=== PATIENT | female | born 1970 | race Caucasian/White ===

== ENCOUNTER 2023-06-28 12:15 | Emergency (ER) | payer SELFPAY ==
[2023-06-28 12:20] VITALS: BP 133/90
--- NOTE | 2023-06-28 12:32 | ED.GENMED ---
History of Present Illness
<Devika Owens [employer] LEAD - Last Filed: 06/28/23 17:33>
General
Chief Complaint: Oral/Mouth Problem
Source: patient
Exam Limitations: none
Time Seen by Provider: 06/28/23 12:31
Nursing documentation reviewed up to this point in time: agreed with
Travel History
Have you had any contact with someone who has COVID-19?: No
Do you have any symptoms of coronavirus? Fever > 100 degrees, chills, cough, shortness of breath, sore throat, loss of taste or smell, muscle aches, or headache?: No
History of Present Illness
History of Present Illness:
53-year-old female is here with hx TMJ diagnosed 45 yrs ago, last flare was 20 yrs ago 'never this bad.'
Had pain in left lower jaw/TMJ area since 06/06 when she woke up with aching pain and left ear pain. Ear pain subsided but pain is worsening.
06/08 saw her dentist, told to take Tylenol, had dental xrays, and 'he poked around in my mouth.' Pain has worsened since then
06/11 pain worse, called dentist back, Metaxalone 800 mg prescribed which help for about a week
/2 Pain suddenly got 'dramatically' worse with no relief with Tylenol or Metaxalone and has gradually worsened
Denies fever/chills. Denies n/v.
Denies ear pain, headache. Is unable to open mouth or speak without significant pain
She has been using a bite guard past 2 weeks.
Past History
<Devika Owens [employer] LEAD - Last Filed: 06/28/23 17:33>
Past History
ED Past Medical History: None
ED Past Surgical History: None
Social History
Tobacco: Non-smoker
Personal:
Living: with family
Review of Systems
<Devika Owens [employer] LEAD - Last Filed: 06/28/23 17:33>
Review of Systems
Allergies reviewed?: Yes
All Other Systems: ROS reviewed and negative except as documented in HPI and ROS
Constitutional: Denies fever or chills
EENT: Reports other (pain left jaw)
Respiratory: Denies trouble breathing
ABD/GI: Denies abdominal pain, nausea or vomiting
Musculoskeletal: Denies neck pain
Skin: Reports no symptoms
Neurological: Reports no symptoms
Phy Exam
<Devika Owens, [employer] LEAD - Last Filed: 06/28/23 17:33>
Physical Exam
Physical Exam:
GENERAL: No acute distress. A&Ox3.
CONSTITUTIONAL: Afebrile.
EYES: PERRL, conjunctivae normal
ENMT: moist mucus membranes, Pharynx nl,TMs normal
RESPIRATORY: Regular respirations, nonlabored, lungs clear.
CARDIOVASCULAR: Regular rate and rhythm, no murmurs, no rubs.
GI: Soft, nontender, normal BS
MUSCULOSKELETAL: Moves with ease. Well perfused.
SKIN: Warm, dry, pink
PSYCH: Normal mood and affect. Well kept, interactive and appropriate
NEUROLOGIC: Awake, alert and oriented. No focal neurological deficits
Course
<Devika Owens, [employer] LEAD - Last Filed: 06/28/23 17:33>
Orders/Labs/Results
Orders:
Orders
06/28/23 13:02
CT Neck With Iv Contrast Urgent
Comment:
Reason For Exam: lower jaw pain, swelling, trismus
Ketorolac [Toradol] 15 mg IV NOW STA
06/28/23 13:03
0.9% Sodium Chloride 1000 ml [Nss] 1,000 ml IV BOLUS
06/28/23 13:23
Complete Blood Count/With Diff Urgent
Comprehensive Metabolic Panel Urgent
06/28/23 15:56
Amoxicillin 875 mg/Clav 125 mg [Augmentin 875 mg/125 mg] 1 tablet PO NOW STA
Oxycodone/Acetaminophen [Percocet 5/325] 1 tablet PO NOW STA
Abnormal Lab Results
06/28/23
13:23
MCHC 32.4 L g/dL
(33.0-37.0)
Lymphocytes % 19.9 L %
(20.5-51.1)
Creatinine 0.5 L mg/dL
(0.6-1.0)
06/28/23 13:23
06/28/23 13:23
Vital Signs
Initial and Last Documented VS:
Initial Vital Signs
Temp Pulse Resp BP Pulse Ox
97.4 F 79 20 133/90 99
06/28/23 12:20 06/28/23 12:20 06/28/23 12:20 06/28/23 12:20 06/28/23 12:20
Last Documented Vital Signs
Temp Pulse Resp BP Pulse Ox
97.4 F 74 20 134/94 99
06/28/23 12:20 06/28/23 16:26 06/28/23 12:20 06/28/23 16:26 06/28/23 12:20
<Shemar Segal MD - Last Filed: 06/28/23 15:36>
Orders/Labs/Results
Orders:
Orders
06/28/23 13:02
CT Neck With Iv Contrast Urgent
Comment:
Reason For Exam: lower jaw pain, swelling, trismus
Ketorolac [Toradol] 15 mg IV NOW STA
06/28/23 13:03
0.9% Sodium Chloride 1000 ml [Nss] 1,000 ml IV BOLUS
06/28/23 13:23
Complete Blood Count/With Diff Urgent
Comprehensive Metabolic Panel Urgent
06/28/23 15:56
Amoxicillin 875 mg/Clav 125 mg [Augmentin 875 mg/125 mg] 1 tablet PO NOW STA
Oxycodone/Acetaminophen [Percocet 5/325] 1 tablet PO NOW STA
Abnormal Lab Results
06/28/23
13:23
MCHC 32.4 L g/dL
(33.0-37.0)
Lymphocytes % 19.9 L %
(20.5-51.1)
Creatinine 0.5 L mg/dL
(0.6-1.0)
06/28/23 13:23
06/28/23 13:23
Vital Signs
Initial and Last Documented VS:
Initial Vital Signs
Temp Pulse Resp BP Pulse Ox
97.4 F 79 20 133/90 99
06/28/23 12:20 06/28/23 12:20 06/28/23 12:20 06/28/23 12:20 06/28/23 12:20
Last Documented Vital Signs
Temp Pulse Resp BP Pulse Ox
97.4 F 74 20 134/94 99
06/28/23 12:20 06/28/23 16:26 06/28/23 12:20 06/28/23 16:26 06/28/23 12:20
<Devika Owens, [employer] LEAD - Last Filed: 06/28/23 17:33>
MDM/Problems Addressed
Differential Diagnosis Includes:
Dental abscess, TMJ
MDM/Problems Addressed:
53-year-old female is here with hx TMJ diagnosed 45 yrs ago, last flare was 20 yrs ago 'never this bad.'
Had pain in left lower jaw/TMJ area since 06/06 when she woke up with aching pain and left ear pain. Ear pain subsided but pain is worsening.
06/08 saw her dentist, told to take Tylenol, had dental xrays, and 'he poked around in my mouth.' Pain has worsened since then
06/11 pain worse, called dentist back, Metaxalone 800 mg prescribed which help for about a week
2/2 Pain suddenly got 'dramatically' worse with no relief with Tylenol or Metaxalone, and has gradually worsened
Denies fever/chills. Denies n/v.
Denies ear pain, headache. Is unable to open mouth or speak without significant pain
She has been using a bite guard past 2 weeks.
Palpation along left inner buccal mucosal border : patient is point tender along the posterior buccal mucosal border and TMJ. Outer cheek is swollen, no erythema, tender mid jawline
06/28/2023 1433 PM
CBC, CMP normal
Neck CT with IV contrast to assess for abscess
06/28/[address] neck reveals no acute abnormality, no abscess, TM J appears normal
Dr. Segal in to evaluate patient. He has visualized a moderate-sized ulcer posteriorly left lower gum. Most likely from bite guard.
There is also erythema with retracted gum in that area, may be early abscess or dental infection.
Little relief with IV Toradol.
Plan: Rx for Augmentin 875 twice daily sent to her pharmacy, Rx for [place] 5/325 #10 sent to her pharmacy
Referred to Oral surgeon if not improving
<Devika Owens NP - Last Filed: 06/28/23 17:33>
*Critical Care Note
Total Time (30-74mins, 75-104mins- exclusive of procedures): Not Applicable
ED Attending Note
<Devika Owens NP - Last Filed: 06/28/23 17:33>
-
Portions of this chart may have been created with voice recognition software.� Occasional wrong word or��sound alike� substitutions may have occurred due to the inherent limitations of voice recognition software.
<Shemar Segal MD - Last Filed: 06/28/23 15:36>
ED Attending Note
Patient seen and examined by attending physician: Yes
ED Attending Note:
I have seen and evaluated the patient with a [id number] encounter. I have spoken to the advance practicer provider and involved in the medical history, the physical exam, medical decision making.
Evaluation and management service: agree unless noted differently below.
Results interpretation: agree unless noted differently below.
Focused HPI: 53-year-old female with a past medical history of migraines, TMJ presents to the emergency room for evaluation of left facial pain. Patient reports that she has had pain for the past 3 weeks and swelling in the left side of her face
for past week or so. Initially seen by her dentist who performed an x-ray and found no significant abnormalities, started her on Tylenol which she says did not help with her pain. With progression of symptoms she was started on a muscle relaxer
but again this was not improving her symptoms. Finally decided to come to the emergency room here for assessment. She says pain is much worse with opening her mouth but she has consistent throbbing pain left mandibular region. She denies any
earache or change in her hearing, drainage from the ear. She denies any trauma. She denies any headache or vision changes. She denies any fevers or chills. She denies similar symptoms in the past. She does wear a bite guard at night she says it
seems to have eroded a bit at the bottom part of her gum on the left.
Physical exam: Awake and alert, nontoxic. Vital signs normal. She has very marginal swelling left preauricular region and tenderness to palpation around the TMJ. She has an ulceration at the base of the left lower molars. Generally good
dentition. No dental fractures noted. No tongue elevation. She does have some mild trismus. Uvula midline. TM clear on the left, no tenderness of the mastoid process.
Medical Decision Making: Patient presents with worsening pain and swelling of the left facial region. She has had TMJ issues in the past but symptoms are not responding to [id number] meds and muscle relaxers prescribed by dentist. She has
noticed some swelling as well which she says is atypical. Vital signs normal. Exam as above. Labs sent off which were unremarkable she was sent for CT of the neck/face which showed no abscess or other acute abnormalities. She does have an
ulceration of the gum could be one of the main causes of her pain or at least contributing. She could have a developing dental abscess. Lower suspicion for parotitis based on her exam. Will plan to start on course of antibiotics and prescribe
pain control and refer to oral surgery for outpatient follow-up.
Discharge Plan
Departure
Patient Disposition: Home (Routine Discharge)
Date of Disposition: 06/28/23
Time of Disposition: 16:00
Patient with high blood pressure during this ER visit?: No
Condition: Fair
Discharge Problem:
Gingival ulcer, Jaw pain
Instructions: Tooth Abscess (DC), Mouth Sores (DC), Dental Pain (DC)
Prescriptions:
New
amoxicillin-pot clavulanate 875-125 mg tablet
1 tab PO BID Qty: 19 0RF
hydrocodone-acetaminophen 5-325 mg tablet
1 tab PO Q6H PRN (Reason: Pain) Qty: 10 0RF
Referrals:
NONE,* [Family Provider] -
Trudi Dubon DDS [Active] - Call in 1-3 days for appt
Activity Restrictions/Additional Instructions:
As we discussed, your pain is most likely coming from the ulcer at the back of your jaw. Avoid wearing the bite guard as this may be what caused
You also have some inflammation around the gumline with some swelling and redness, this may indicate an early abscess or tooth infection. I sent a prescription to your pharmacy for the antibiotic Augmentin to take twice a day for 10 days and also a
prescription for [place] or hydrocodone to use for pain.
Use ibuprofen or Tylenol for mild to moderate pain and use the hydrocodone for worse pain.
Call the oral surgeon's office tomorrow and make the next available appointment
Interventions
Interventions:
*Risk Screen - Suicide Last Done: 06/28/23 12:24
*General Assessment Last Done: 06/28/23 12:24
*Neglect/Abuse Screening Last Done: 06/28/23 12:24
ED- Fall Risk Assessment Last Done: 06/28/23 13:30
*ED COVID-19 Vaccine History Last Done: 06/28/23 12:24
*Nursing Disposition Last Done: 06/28/23 16:26
Discharge Date and Time
Discharge Date/Time: 06/28/23 16:26
[2023-06-28 13:16] VITALS: BMI 27.4
[2023-06-28] MEDS: TORADOL 15 MG IV (13:22)
[2023-06-28] MEDS: NSS 1000 IV (13:22)
[2023-06-28 13:41] LABS: % Basophils 0.4 % (0-2); % Eosinophils 0.7 % (0-6); % Immature Granulocytes 0.3 % (0-0.5); % Lymphocytes 19.9 % (20.5-51.1); % Monocytes 6.1 % (1.7-9.3); % Neutrophils 72.6 % (42.2-75.2); Absolute Eosinophils 0.1 10^3/uL (0-0.7); Absolute Lymphocytes 1.4 10^3/uL (1.2-3.4); Absolute Monocytes 0.4 10^3/uL (0.1-0.6); Absolute Neutrophils 5.3 10^3/uL (1.4-6.5); Hematocrit 40.1 % (37.0-47.0); Mean Corp Hgb Conc. 32.4 g/dL (33.0-37.0); Mean Corpuscular Hgb 29.6 pg (27.0-31.0); Mean Corpuscular Volume 91.3 fL (81.0-99.0); Mean Platelet Volume 10.1 fL (7.4-10.4); Nucleated Red Blood Cells % 0 %; Platelet Count 321 10^3/uL (130-400); Red Blood Cell Count 4.39 10^6/uL (4.20-5.40); Red Cell Dist. Width 13.1 % (11.5-14.5); White Blood Cell Count 7.2 10^3/uL (4.8-10.8)
[2023-06-28 13:48] LABS: ALT (SGPT) 25 U/L (0-35); AST (SGOT) 31 U/L (14-36); Albumin 4.4 g/dl (3.5-5.0); Alkaline Phosphatase 76 U/L (38-126); Blood Urea Nitrogen 11 mg/dl (7-17); Calcium 9.5 mg/dl (8.4-10.2); Carbon Dioxide 28 mmol/L (22-30); Chloride 105 mmol/L (98-107); Estimated Creatinine Clearance 99 ml/min; Glucose 95 mg/dl (70-99); Potassium 4.6 mmol/L (3.5-5.1); Sodium 138 mmol/L (135-145); Total Bilirubin 0.7 mg/dl (0.2-1.3); Total Protein 6.9 g/dl (6.3-8.2); eGFR > 60.00
[2023-06-28 14:45] VITALS: BP 129/87
[2023-06-28] MEDS: AUGMENTIN 875 MG/125 MG 1 TABLET PO (16:13)
[2023-06-28] MEDS: PERCOCET 5/325 1 TABLET PO (16:13)
[2023-06-28 16:25] VITALS: BP 134/94
[2023-06-28 16:26] VITALS: BP 134/94
== END 2023-06-28 16:26 | disposition home or self-care (01) ==
LOC: EMR 12:15
PROVIDERS: Registered Nurse; EMERGENCY PHYSICIAN Emergency Medicine
DX: K06.8 Other specified disorders of gingiva and edentulous alveolar ridge (principal); R68.84 Jaw pain
CPT/HCPCS: 99284; 70491; 80053; 85025; Q9967